=== PATIENT | male | born 1970 | race Caucasian/White ===

== ENCOUNTER → 2016-10-01 | Outpatient (CLI) | payer OTHER ==
[~2016-10-01] MED LIST: MESA1TAB4
[2016-10-01 12:31] LABS: BASO % 0.9 %; BASO ABS # 0.07 K/uL (0-0.2); COMPLETE YES; EOS % 4.1 %; HEMATOCRIT 42.9 % (42-52); IG% 0.2 %; LYMPH % 25.8 %; MEAN CELL VOLUME 80.6 fL (80-100); MEAN CORPUSCULAR HEMOGLOBIN 25.9 pg (25-34); MEAN CORPUSCULAR HGB CONC 32.2 g/dl (32-36); MEAN PLATELET VOLUME 9.6 fL (7.4-10.4); MONO % 5.9 %; NEUT % 63.1 %; PLATELET COUNT 343 K/uL (130-400); RED BLOOD COUNT 5.32 M/uL (4.7-6.1); WHITE BLOOD COUNT 8.14 K/uL (4.8-10.8)
[2016-10-01 12:56] LABS: ALT/SGPT 22 U/L (12-78); AST/SGOT 11 U/L (15-37); BLOOD UREA NITROGEN 12 mg/dl (7-18); BUN/CREATININE RATIO 12.2 (10-20); CALCIUM 8.6 mg/dl (8.5-10.1); CARBON DIOXIDE 28 mmol/L (21-32); CHLORIDE 106 mmol/L (98-107); CHOLESTEROL 166 mg/dl (0-200); CREATININE 0.98 mg/dl (0.60-1.40); GLUCOSE 92 mg/dl (70-99); SODIUM 141 mmol/L (136-145)
[2016-10-01 12:59] LABS: ALKALINE PHOSPHATASE 86 U/L (45-117); CHOLESTEROL/HDL RATIO 3.7; HDL CHOLESTEROL 45 mg/dl; LDL CHOLESTEROL CALCULATED 84 mg/dl; TRIGLYCERIDES 184 mg/dl (0-150); VERY LOW DENSITY LIPOPROT CALC 37 mg/dl
== END | disposition home or self-care (01) ==
LOC: C.LABBFT 07:50
PROVIDERS: ATTEND Internal Medicine
DX: Z00.00 Encounter for general adult medical examination without abnormal findings (principal); K52.9 Noninfective gastroenteritis and colitis, unspecified; I10 Essential (primary) hypertension; J45.909 Unspecified asthma, uncomplicated; E78.5 Hyperlipidemia, unspecified

== ENCOUNTER 2020-07-10 11:33 | Inpatient (IN) ==
[2020-07-10] MEDS ORDERED: SODIUM CHLORIDE 0.9% 1000ML 1,000 ML IV STA (12:09)
--- NOTE | 2020-07-10 12:16 | Emergency Department Note ---
Impression & Plan Large bowel obstruction, Colonic mass, Leukocytosis, Enterocolic fistula ED Provider Note NAME: NILO KING AGE: 49 SEX: M : 1970 ARRIVES VIA: Walk-In INFORMANT: [Patient] ED PROVIDER(S): [Eric Reveles MD] CHIEF COMPLAINT: Abdominal pain HISTORY OF PRESENT ILLNESS: Patient is a 49-year-old male who has had about a week and a half of abdominal pain and difficulty moving his bowels. He states his last bowel movement was sort of black and hard and was about a week ago. He has had intermittent lower abdominal pain that is colicky and crampy in nature. The pain is currently a 2, it had been as bad as a 7. Patient does think eating makes things worse. There has been no shortness of breath or chest pain. No fever or chills. He did vomit once last week, he has had some nausea and decreased appetite ever since. He does have some difficulty starting his urine although, the issue with the urine has been ongoing. Patient does believe he is still passing some gas from below, just no stool. The patient saw his doctors office today, he was referred to the ED for the possibility of a bowel obstruction. Of note, the patient has had a colonoscopy in the past showing diverticuli, the patient himself is concerned for diverticulitis. REVIEW OF SYSTEMS: See HPI for pertinent positives and negatives. A total of ten systems were reviewed and were otherwise negative. PMHx/PSHx: See Below SOCIAL HISTORY: See Below. PHYSICAL EXAM: GENERAL: Patient is in no acute distress. HEENT: No acute trauma, normocephalic atraumatic, mucous membranes moist, no nasal congestion, no scleral icterus. NECK: No stridor, no adenopathy, no meningismus, trachea is midline. LUNGS: Clear to auscultation bilaterally, no wheeze, no rhonchi, breath sounds equal. HEART: Mildly tachycardic, regular rhythm, no murmurs. ABDOMEN: Soft, mildly tender in the bilateral lower abdomen, bowel sounds positive, no hernias, no peritonitis. No distention. EXTREMITIES: No cyanosis or edema, full range of motion of all the joints without pain or difficulty, no signs for acute trauma. NEUROLOGIC: Oriented x 3, no acute motor or sensory deficits, no focal weakness. SKIN: No rash, no jaundice, no diaphoresis. Groin: No obvious hernia by my exam. DIFFERENTIAL DIAGNOSIS: Appendicitis, testicular torsion, infections, diverticulitis, UTI, obstruction, mesenteric ischemia, aortic pathology, inflammatory bowel disease, renal colic, PUD, pancreatitis, biliary pathology, hernia, volvulus, constipation, as well as other pathologies. EMERGENCY DEPARTMENT COURSE/PROCEDURES: ECG: Indication was abdominal pain. The ECG shows a normal sinus rhythm with a rate of 84. There are no PVCs, no ST elevation. The QTc is 418. Continuous Cardiac Monitoring: An order was placed for continuous cardiac monitoring. The monitor shows a rate of 102 with sinus tachycardia. MEDICAL DECISION MAKING: There is a moderate leukocytosis at 14,000, this certainly could be consistent with infection. There is no anemia. There is a slightly elevated platelet count. Renal panel testing shows a mild hyponatremia. A very mild acidosis was suggested. There was no kidney failure. No liver enzyme elevation. No evidence for pancreatitis. ECG showed a sinus rhythm, no acute ischemia. Cardiac enzyme testing x1 is not consistent with acute cardiac injury. Abdominal and pelvis CT shows a colonic obstruction secondary to what was felt to be a colonic mass. There were some swollen lymph nodes. 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 No free air. Patient received IV saline, 1 L. He was given IV Zosyn as empiric antibiotic coverage. I talked to the patient about his findings. I did speak with GI. The patient is likely going to have a colonic stent placed tomorrow. General surgery was also consulted. I did speak with case management, I did call the on-call hospitalist. Given the findings, hospitalization is clearly warranted. The findings on work-up explain his presentation. Past Med/Surg History Medical History Asthma Hyperlipidemia Hypertension Impaired fasting glucose Non-specific colitis Proctosigmoiditis Surgical History H/O arthroscopic knee surgery History of colonoscopy History of tonsillectomy History of tooth extraction Family History Aunt Family history of diabetes mellitus Other Depression Macular degeneration Obesity Ulcerative colitis Denies family history of Breast cancer Colorectal cancer Social History Smoking Status: Never smoker Second Hand Exposure: No; Hx Alcohol Use: Yes Alcohol type: hard liquor Hx Substance Use: No Preferred Language: Slovak Communication Ability: Effective Combine Inspector Required: No Beliefs That Will Affect Care: None Current Living Situation: Alone current occupational status: employed Feels Safe at Home: Yes Assistive Devices: Glasses Allergies Allergies Allergy/AdvReac Type Severity Reaction Status Date / Time No Known Allergies Allergy Verified 07/10/20 13:10 Home Meds Previous Rx's Medication Instructions Recorded albuterol sulfate 90 mcg/actuation 2 puffs INH Q4H PRN #8.5 gm 10/26/19 aerosol inhaler lisinopril 10 mg tablet 10 mg PO DAILY #90 tab 01/19/20 simvastatin 20 mg tablet 20 mg PO HS #90 tab 04/25/20 Results & Data (ED) Vital Signs Vital Signs - 24 hr 07/10/20 11:35 Temperature 36.7 C Temperature Source Temporal Artery Scan Pulse Rate 102 H Respiratory Rate 20 Respiratory Effort / Characteristics Non-Labored Spontaneous Respiratory Depth Normal Respiratory Pattern Regular Blood Pressure 109/70 Blood Pressure Mean 83 Blood Pressure Position Sitting Pulse Oximetry 99 Oxygen Delivery Method Room Air Sepsis Recent Fever Within 48 Hours No Sepsis New/Unexplained Change in Mental Status N/A Sepsis Action Taken by Nursing No Action Required Home Medications Current Medication List: was personally reviewed by me Laboratory Data Attestation: I reviewed the patient's lab results. Result diagrams: 07/10/20 12:14 07/10/20 12:14 Lab Results 07/10/20 07/10/20 Range/Units 12:14 12:14 WBC 14.65 H (4.8-10.8) K/uL RBC 5.70 (4.7-6.1) M/uL Hgb 16.9 (14.0-18.0) g/dL Hct 46.3 (42-52) % MCV 81.2 (80-100) fL MCH 29.6 (25-34) pg MCHC 36.5 H (32-36) g/dL RDW Std Deviation 36.8 (36.4-46.3) fL RDW Coeff of Odell 12.5 (11.5-14.5) % Plt Count 415 H (130-400) K/uL MPV 8.9 (7.4-10.4) fL Immature Gran % (Auto) 3.5 % Neut % (Auto) 47.6 % Lymph % (Auto) 38.9 % [place] % (Auto) 7.9 % Eos % (Auto) 1.6 % Baso % (Auto) 0.5 % Neut # (Auto) 6.97 H (1.4-6.5) K/uL Lymph # (Auto) 5.70 H (1.2-3.4) K/uL [place] # (Auto) 1.16 H (0.11-0.59) K/uL Eos # (Auto) 0.24 (0-0.5) K/uL Baso # (Auto) 0.07 (0-0.2) K/uL Immature Gran # (Auto) 0.51 H (0.00-0.02) K/uL Smudge Cells Present Blood Smear Review Sodium 132 L (136-145) mmol/L Potassium 3.6 (3.5-5.1) mmol/L Chloride 100 (98-107) mmol/L Carbon Dioxide 17 L (21-32) mmol/L Anion Gap 15.0 H (3-11) BUN 16 (7-18) mg/dl Creatinine 0.94 (0.6-1.4) mg/dl Est Cr Clr Drug Dosing 123.8 ml/min Est GFR ( Amer) 110.7 Est GFR (Non-Af Amer) 95.5 BUN/Creatinine Ratio 17.5 (10-20) Glucose 105 H (70-99) mg/dl Calcium 8.4 L (8.5-10.1) mg/dl Total Bilirubin 0.6 (0.2-1) mg/dl AST 25 (15-37) U/L ALT 36 (12-78) U/L Alkaline Phosphatase 74 (45-117) U/L Troponin I < 0.015 (0-0.045) ng/ml Total Protein 7.0 (6.4-8.2) gm/dl Albumin 3.3 L (3.4-5.0) gm/dl Globulin 3.7 (2.5-4.0) gm/dl Albumin/Globulin Ratio 0.9 (0.9-2) Lipase 153 (73-393) U/L Administered Medications Discontinued Medications Sodium Chloride (Nss 1000ml) 1,000 mls @ 999 mls/hr IV .Q1H1M STA Stop: 07/10/20 13:09 Last Infusion: 07/10/20 13:15 Dose: 0 mls/hr Documented by: [id number] Admin: 07/10/20 12:14 Dose: 999 mls/hr Documented by: [id number] Ioversol (Ioversol 100ml) 94 ml IV ONCE ONE Stop: 07/10/20 13:13 Last Admin: 07/10/20 13:12 Dose: 94 ml Documented by: [id number] Imaging Data Radiologist's Impression: CT SCAN OF THE ABDOMEN AND PELVIS WITH IV CONTRAST CLINICAL HISTORY: Generalized abdominal pain. Nausea. COMPARISON STUDY: KUB dated 11/04/2011. TECHNIQUE: Following the IV administration of 94 cc of Optiray 320, CT scan of the abdomen and pelvis is performed from the lung bases to the proximal femora. Images are reviewed in the axial, sagittal, and coronal planes. IV contrast was administered without complication. A dose lowering technique was utilized adhering to the principles of ALARA. CT DOSE: 1120.30 mGycm FINDINGS: Lung bases: The heart is normal in size and without pericardial effusion. There are scattered calcified granulomas. The lung bases are otherwise clear. A small hiatal hernia is noted. Liver: The contrast-enhanced liver is normal in size, contour, and attenuation. There is no intrahepatic biliary ductal dilatation. The hepatic veins and portal veins are patent. Gallbladder: Unremarkable. Spleen: Normal in size and attenuation. Pancreas: Unremarkable. Adrenal glands: Unremarkable. Kidneys: The contrast enhanced kidneys are normal in size and without hydrone phrosis. The kidneys enhance symmetrically. A subcentimeter cortical hypodensity in the left kidney likely represents a cyst but is too small for definitive characterization. A retroaortic left renal vein is incidentally noted. Abdominal vasculature: The abdominal aorta is normal in course and caliber. Bowel: The colon is mildly distended and filled with stool. There is rapid transition point in the proximal sigmoid colon the pelvis seen on axial image #355. There is apparent shouldering at this site, and this is concerning for a colonic obstruction secondary to a mass lesion. There is mild to moderate sigmoid diverticulosis without CT evidence of acute diverticulitis. Question an enterocolic fistula in this region on axial image #345. Mild infiltration is seen around the left colon. The small bowel loops are normal in caliber. The appendix is well-visualized and normal. Peritoneum: There is no intraperitoneal free air or abdominal ascites. Lymphadenopathy: There are enlarged pericolonic lymph nodes in the left lower quadrant. The largest is seen on image #314 and measures 11 mm. Pelvic viscera: The bladder, prostate, and seminal vesicles are normal as imaged. Skeletal structures: No lytic or blastic lesions are seen. IMPRESSION: 1. The colon is distended and filled with stool to the level of the proximal sigmoid colon and the appearance is consistent with a colonic obstruction. Findings suggest an obstructing mass lesion and neoplasm is to be excluded. Follow-up with colonoscopy is recommended. 2. There is mild wall thickening and pericolonic inflammation seen involving the descending colon. This is consistent with a nonspecific colitis, possibly stercoral. 3. The small bowel loops are normal in caliber. 4. Findings suggest an enterocolic fistula in the pelvis at the level of obstruction. 5. There is mild/moderate diverticulosis of the sigmoid without CT evidence of acute diverticulitis. 6. Mildly enlarged pericolonic lymph nodes are seen in the left lower quadrant. 7. Additional findings as above. Discharge Plan Visit Data Chief Complaint: GI Assessment Stated Complaint: CONSTIPATION ED Provider: Eric Reveles Discharge Problem: Large bowel obstruction, Colonic mass, Leukocytosis, Enterocolic fistula Patient Disposition: Admitted As Inpatient Condition: Fair Forms Stand Alone Forms: [employer] Prescriptions Prescriptions: No Action lisinopril 10 mg tablet 10 mg PO DAILY Qty: 90 RF: 3 albuterol sulfate [Ventolin HFA] 90 mcg/actuation HFA aerosol inhaler 2 puffs INH Q4H PRN (Reason: shortness of breath or wheezing) Qty: 8.5 RF: 3 simvastatin 20 mg tablet 20 mg PO HS Qty: 90 RF: 3 Referrals Referrals: Jasmin Brooks MD [Primary Care Provider] - Discharge Problem: Leukocytosis Qualifiers: Leukocytosis type: unspecified Qualified Code(s): D72.829 - Elevated white blood cell count, unspecified
[2020-07-10 12:23] LABS: Hematocrit (blood only) 46.3 % (42-52); Hemoglobin 16.9 g/dL (14.0-18.0); Mean Corpuscular Hemoglobin 29.6 pg (25-34); Mean Corpuscular Hgb Conc 36.5 g/dL (32-36); Mean Corpuscular Volume 81.2 fL (80-100); Mean Platelet Volume 8.9 fL (7.4-10.4); Platelet Count 415 K/uL (130-400); RDW Coefficient of Variation 12.5 % (11.5-14.5); RDW Standard Deviation 36.8 fL (36.4-46.3); White Blood Count 14.65 K/uL (4.8-10.8)
[2020-07-10 12:39] LABS: Alanine Aminotransferase 36 U/L (12-78); Albumin Level 3.3 gm/dl (3.4-5.0); Aspartate Aminotransferase 25 U/L (15-37); BUN Creatinine Ratio 17.5 (10-20); Blood Urea Nitrogen 16 mg/dl (7-18); Calcium 8.4 mg/dl (8.5-10.1); Carbon Dioxide 17 mmol/L (21-32); Chloride 100 mmol/L (98-107); Creatinine Clr Calc Pharmacy 123.8 ml/min; Est GFR (African American) 110.7; Est GFR (Non-African American) 95.5; Glucose 105 mg/dl (70-99); Lipase 153 U/L (73-393); Potassium 3.6 mmol/L (3.5-5.1); Sodium 132 mmol/L (136-145)
[2020-07-10 12:44] LABS: Albumin Globulin Ratio 0.9 (0.9-2); Alkaline Phosphatase 74 U/L (45-117); Bilirubin,Total 0.6 mg/dl (0.2-1); Globulin 3.7 gm/dl (2.5-4.0); Troponin I < 0.015 ng/ml (0-0.045)
[2020-07-10] MEDS ORDERED: OPTIRAY 320 100ml IV ONE (13:12)
[2020-07-10 13:18] LABS: Basophils # (auto) 0.07 K/uL (0-0.2); Basophils % (auto) 0.5 %; Eosinophils # (auto) 0.24 K/uL (0-0.5); Eosinophils % (auto) 1.6 %; Immature Granulocytes # (auto) 0.51 K/uL (0.00-0.02); Immature Granulocytes % (auto) 3.5 %; Lymphocytes % (auto) 38.9 %; Monocytes # (auto) 1.16 K/uL (0.11-0.59); Monocytes % (auto) 7.9 %; Neutrophils # (auto) 6.97 K/uL (1.4-6.5); Neutrophils % (auto) 47.6 %; Smudge Cells Present
--- NOTE | 2020-07-10 13:35 | CT Scan Report ---
CT SCAN OF THE ABDOMEN AND PELVIS WITH IV CONTRAST CLINICAL HISTORY: Generalized abdominal pain. Nausea. COMPARISON STUDY: KUB dated 11/04/2011. TECHNIQUE: Following the IV administration of 94 cc of Optiray 320, CT scan of the abdomen and pelvi s is performed from the lung bases to the proximal femora. Images are reviewed in the axial, sagittal , and coronal planes. IV contrast was administered without complication. A dose lowering technique wa s utilized adhering to the principles of ALARA. CT DOSE: 1120.30 mGycm FINDINGS: Lung bases: The heart is normal in size and without pericardial effusion. There are scattered calcifi ed granulomas. The lung bases are otherwise clear. A small hiatal hernia is noted. Liver: The contrast-enhanced liver is normal in size, contour, and attenuation. There is no intrahepa tic biliary ductal dilatation. The hepatic veins and portal veins are patent. Gallbladder: Unremarkable. Spleen: Normal in size and attenuation. Pancreas: Unremarkable. Adrenal glands: Unremarkable. Kidneys: The contrast enhanced kidneys are normal in size and without hydronephrosis. The kidneys enh ance symmetrically. A subcentimeter cortical hypodensity in the left kidney likely represents a cyst but is too small for definitive characterization. A retroaortic left renal vein is incidentally noted . Abdominal vasculature: The abdominal aorta is normal in course and caliber. Bowel: The colon is mildly distended and filled with stool. There is rapid transition point in the pr oximal sigmoid colon the pelvis seen on axial image #355. There is apparent shouldering at this site, and this is concerning for a colonic obstruction secondary to a mass lesion. There is mild to modera te sigmoid diverticulosis without CT evidence of acute diverticulitis. Question an enterocolic fistul a in this region on axial image #345. Mild infiltration is seen around the left colon. The small bruce l loops are normal in caliber. The appendix is well-visualized and normal. Peritoneum: There is no intraperitoneal free air or abdominal ascites. Lymphadenopathy: There are enlarged pericolonic lymph nodes in the left lower quadrant. The largest i s seen on image #314 and measures 11 mm. Pelvic viscera: The bladder, prostate, and seminal vesicles are normal as imaged. Skeletal structures: No lytic or blastic lesions are seen. IMPRESSION: 1. The colon is distended and filled with stool to the level of the proximal sigmoid colon and the ap pearance is consistent with a colonic obstruction. Findings suggest an obstructing mass lesion and ne oplasm is to be excluded. Follow-up with colonoscopy is recommended. 2. There is mild wall thickening and pericolonic inflammation seen involving the descending colon. Th is is consistent with a nonspecific colitis, possibly stercoral. 3. The small bowel loops are normal in caliber. 4. Findings suggest an enterocolic fistula in the pelvis at the level of obstruction. 5. There is mild/moderate diverticulosis of the sigmoid without CT evidence of acute diverticulitis. 6. Mildly enlarged pericolonic lymph nodes are seen in the left lower quadrant. 7. Additional findings as above. ACT 112: Positive. There are findings on this exam that require communication between the performing entity and the patient following Patient Test Result Information Act ([place] Act 112) guidelines. Electronically signed by: Eric Petersen M.D. 07/10/2020 1:33 PM
[2020-07-10] MEDS ORDERED: PIPERACILL/TAZOBAC CONSULT ACTIVE PRN ×3 (13:50→22:25)
[2020-07-10] MEDS ORDERED: PIPERACILLIN/TAZOBACTAM 4.5 GM/120 ML BAG IV ONE ×3 (13:50→20:30)
--- NOTE | 2020-07-10 14:26 | Electrocardiogram Report ---
Test Reason : Blood Pressure : / mmHG Vent. Rate : 084 BPM Atrial Rate : 084 BPM P-R Int : 168 ms QRS Dur : 082 ms QT Int : 354 ms P-R-T Axes : 039 016 006 degrees QTc Int : 418 ms Normal sinus rhythm Normal ECG No previous ECGs available Confirmed by Jeyson Turcios ([id number]) on 07/10/2020 2:26:12 PM Referred By: SELF Confirmed By:Jeyson Turcios
--- NOTE | 2020-07-10 14:38 | History & Physical Report ---
Date of Service July 10, 2020 History of Present Illness Primary Care Provider: Jasmin Brooks MD Richard Roberts is a 49-year-old male who presents to the ER with He has a notable history of active chronic colitis of the sigmoid colon. Last colonoscopy in November 2019. Intermittent issues with left lower quadrant pain and rectal bleeding. Colonoscopy in November showed localized moderate inflammation found in sigmoid colon secondary to colitis. Pathology of sigmoid biopsy showed focal active chronic colitis. In the ER he underwent CT abdomen pelvis with IV contrast showing distended colon, filled with stool level of proximal sigmoid colon with appearance consistent with a colonic obstruction and possible obstructing mass in this area. Also concerning findings suggestive of enterocolic fistula in the pelvis at the level of the obstruction. No evidence of acute diverticulitis. Allergies Allergy/AdvReac Type Severity Reaction Status Date / Time No Known Allergies Allergy Verified 07/10/20 13:10 Home Medications Medication Instructions Recorded Confirmed Type albuterol sulfate 90 mcg/actuation 2 puffs INH Q4H PRN #8.5 gm 10/26/19 07/10/20 Rx aerosol inhaler lisinopril 10 mg tablet 10 mg PO DAILY #90 tab 01/19/20 07/10/20 Rx simvastatin 20 mg tablet 20 mg PO HS #90 tab 04/25/20 07/10/20 Rx Past Med/Surg History Medical History Asthma Hyperlipidemia Hypertension Impaired fasting glucose Non-specific colitis Proctosigmoiditis Surgical History H/O arthroscopic knee surgery History of colonoscopy History of tonsillectomy History of tooth extraction Family History Aunt Family history of diabetes mellitus Other Depression Macular degeneration Obesity Ulcerative colitis Denies family history of Breast cancer Colorectal cancer Social History Smoking Status: Never smoker Second Hand Exposure: No; Hx Alcohol Use: Yes Alcohol type: hard liquor Hx Substance Use: No Preferred Language: Latvian Communication Ability: Effective 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
[2020-07-10] MEDS ORDERED: SODIUM CHLORIDE 0.9% 1000ML 500 ML IV ONE (14:56)
[2020-07-10 17:32] LABS: Appearance Urine Clear (Clear); Bilirubin Urine Negative (Negative); Blood Urine Negative (Negative); Color Urine Yellow; Glucose Urine UA Negative (Negative); Ketones Urine 3+ (Negative); Leukocyte Esterase Urine Negative (Negative); Nitrite Urine Negative (Negative); Protein Urine Negative (Negative); Specific Gravity Urine > 1.045 (1.000-1.030); Urobilinogen Urine Negative (Negative)
[2020-07-10] MEDS ORDERED: ACETAMINOPHEN 1,000 MG/100 ML VIAL IV STA (19:34)
--- NOTE | 2020-07-10 21:01 | History & Physical Report ---
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/nonspecific likely stercoral colitis- NPO NSS + KCl 20 mEq 100 mils per hour Zosyn 4.5 g IV every 8 hours Zofran 4 mg IV every 6 hours as needed Famotidine 20 mg IV every 12 hours Acetaminophen 1 g IV every 8 hours as needed mild pain or fever Morphine sulfate 2 mg IV every 4 hours as needed severe pain Consult gastroenterology Present on Admission?: Yes (2) Colonic mass: See above Present on Admission?: Yes (3) Enterocolic fistula: See above Present on Admission?: Yes (4) Non-specific colitis: See above Present on Admission?: Yes (5) Asthma: DuoNebs every 2 hours as needed Present on Admission?: Yes (6) Hyperlipidemia: Hold simvastatin Present on Admission?: Yes (7) Hypertension: Hold lisinopril Present on Admission?: Yes History of Present Illness Chief Complaint: The patient presents to the emergency department with complaint of 1-1/2 weeks of constipation, last BM about 1 week ago that was black and [address]. Primary Care Provider: Jasmin Brooks MD The patient is a 49-year-old male with a past medical history including ta chycardia, constipation, impaired fasting glucose, asthma, hyperlipidemia and hypertension. He presents to the emergency department with difficulty moving his bowels, with last bowel movement being 1 week ago. Work-up in the emergency department included a CT scan of abdomen and pelvis which revealed a colonic mass causing large bowel obstruction, and presence of and enterocolic fistula. Consideration was early on to transfer the patient to [facility], however, the [facility] hospitalist service is being consulted to admit the patient to this hospital, to undergo possible stenting procedure by GI tomorrow. Allergies Allergy/AdvReac Type Severity Reaction Status Date / Time No Known Allergies Allergy Verified 07/10/20 13:10 Home Medications Medication Instructions Recorded Confirmed Type albuterol sulfate 90 mcg/actuation 2 puffs INH Q4H PRN #8.5 gm 10/26/19 07/10/20 Rx aerosol inhaler lisinopril 10 mg tablet 10 mg PO DAILY #90 tab 01/19/20 07/10/20 Rx simvastatin 20 mg tablet 20 mg PO HS #90 tab 04/25/20 07/10/20 Rx Past Med/Surg History Medical History Asthma Hyperlipidemia Hypertension Impaired fasting glucose Non-specific colitis Proctosigmoiditis Surgical History H/O arthroscopic knee surgery History of colonoscopy History of tonsillectomy History of tooth extraction Family History Aunt Family history of diabetes mellitus Other Depression Macular degeneration Obesity Ulcerative colitis Denies family history of Breast cancer Colorectal cancer Social History Smoking Status: Never smoker Second Hand Exposure: No; Hx Alcohol Use: Yes Alcohol type: hard liquor Hx Substance Use: No Preferred Language: Tamazight Communication Ability: Effective 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 Beliefs That Will Affect Care: None Current Living Situation: Alone current occupational status: employed Other Information That Helps Us Care for You: No Feels Safe at Home: Yes Safety Concerns: Feels Safe At This Time Assistive Devices: None Assistive Devices Comment: reading glasses Review of Systems Review of Systems: The patient denies chest pain, palpitations, shortness of breath, dyspnea on exertion, cough, lower extremity swelling, sore throat, fevers, chills, sweats, blood in urine or stool, dysuria, urinary frequency or urgency, lightheadedness, dizziness, headache, memory loss, loss of consciousness, rash, abnormal bruising or bleeding, imbalance, focal or generalized weakness, numbness or tingling in arms or legs, generalized arthralgias or myalgias, neck pain, or night sweats. The review of systems is otherwise negative other than for that already noted above, and at least 10 systems have been reviewed. Physical Exam Physical Exam: The patient is awake, alert and oriented 3, normocephalic and atraumatic, lying in bed and in no acute distress. HEENT--PERRL, EOMI, mucous membranes and oropharynx dry. Neck--supple. No JVD. No bruits. Thyroid normal, trachea midline, no adenopathy. Heart--normal S1 and S2. No murmurs, rubs or gallops. Lungs--clear bilaterally, no respiratory distress, no accessory muscle use. Abdomen--decreased bowel sounds. Firm. Generalized tenderness. Distended. Extremities--no cyanosis or clubbing. No edema. Dermatologic--normal skin turgor, normal color, no abnormal lymph nodes, no ra sh. Neurologic--cranial nerves II through XII grossly intact. Rheumatologic--limited exam Psychiatric--normal affect. Results & Data Results & Data ([facility]) Vital Signs (Past 12 Hours) Vital Signs Temp Pulse Pulse Resp BP BP Pulse Ox 07/10/20 20:36 86 18 99 07/10/20 19:48 88 16 103/68 98 07/10/20 18:00 109/74 07/10/20 16:00 71 18 109/74 99 07/10/20 14:00 80 20 124/75 98 07/10/20 11:35 98.1 F 102 H 20 109/70 99 Laboratory Results Laboratory Results WBC 14.65 K/uL (4.8-10.8) H 07/10/20 12:14 RBC 5.70 M/uL (4.7-6.1) 07/10/20 12:14 Hgb 16.9 g/dL (14.0-18.0) 07/10/20 12:14 Hct 46.3 % (42-52) 07/10/20 12:14 MCV 81.2 fL (80-100) 07/10/20 12:14 MCH 29.6 pg (25-34) 07/10/20 12:14 MCHC 36.5 g/dL (32-36) H 07/10/20 12:14 RDW Std Deviation 36.8 fL (36.4-46.3) 07/10/20 12:14 RDW Coeff of [place]ell 12.5 % (11.5-14.5) 07/10/20 12:14 Plt Count 415 K/uL (130-400) H 07/10/20 12:14 MPV 8.9 fL (7.4-10.4) 07/10/20 12:14 Immature Gran % (Auto) 3.5 % 07/10/20 12:14 Neut % (Auto) 47.6 % 07/10/20 12:14 Lymph % (Auto) 38.9 % 07/10/20 12:14 [place] % (Auto) 7.9 % 07/10/20 12:14 Eos % (Auto) 1.6 % 07/10/20 12:14 Baso % (Auto) 0.5 % 07/10/20 12:14 Neut # (Auto) 6.97 K/uL (1.4-6.5) H 07/10/20 12:14 Lymph # (Auto) 5.70 K/uL (1.2-3.4) H 07/10/20 12:14 [place] # (Auto) 1.16 K/uL (0.11-0.59) H 07/10/20 12:14 Eos # (Auto) 0.24 K/uL (0-0.5) 07/10/20 12:14 Baso # (Auto) 0.07 K/uL (0-0.2) 07/10/20 12:14 Immature Gran # (Auto) 0.51 K/uL (0.00-0.02) H 07/10/20 12:14 Smudge Cells Present 07/10/20 12:14 Blood Smear Review 07/10/20 12:14 Sodium 132 mmol/L (136-145) L 07/10/20 12:14 Potassium 3.6 mmol/L (3.5-5.1) 07/10/20 12:14 Chloride 100 mmol/L (98-107) 07/10/20 12:14 Carbon Dioxide 17 mmol/L (21-32) L 07/10/20 12:14 Anion Gap 15.0 (3-11) H 07/10/20 12:14 BUN 16 mg/dl (7-18) 07/10/20 12:14 Creatinine 0.94 mg/dl (0.6-1.4) 07/10/20 12:14 Est Cr Clr Drug Dosing 123.8 ml/min 07/10/20 12:14 Est GFR ( Amer) 110.7 07/10/20 12:14 Est GFR (Non-Af Amer) 95.5 07/10/20 12:14 BUN/Creatinine Ratio 17.5 (10-20) 07/10/20 12:14 Glucose 105 mg/dl (70-99) H 07/10/20 12:14 Calcium 8.4 mg/dl (8.5-10.1) L 07/10/20 12:14 Total Bilirubin 0.6 mg/dl (0.2-1) 07/10/20 12:14 AST 25 U/L (15-37) 07/10/20 12:14 ALT 36 U/L (12-78) 07/10/20 12:14 Alkaline Phosphatase 74 U/L (45-117) 07/10/20 12:14 Troponin I < 0.015 ng/ml (0-0.045) 07/10/20 12:14 Total Protein 7.0 gm/dl (6.4-8.2) 07/10/20 12:14 Albumin 3.3 gm/dl (3.4-5.0) L 07/10/20 12:14 Globulin 3.7 gm/dl (2.5-4.0) 07/10/20 12:14 Albumin/Globulin Ratio 0.9 (0.9-2) 07/10/20 12:14 Lipase 153 U/L (73-393) 07/10/20 12:14 Urine Color Yellow 07/10/20 16:44 Urine Appearance Clear (Clear) 07/10/20 16:44 Urine pH 5.0 (4.5-7.5) 07/10/20 16:44 Ur Specific [place] > 1.045 (1.000-1.030) H 07/10/20 16:44 Urine Protein Negative (Negative) 07/10/20 16:44 Urine Glucose (UA) Negative (Negative) 07/10/20 16:44 Urine Ketones 3+ (Negative) H 07/10/20 16:44 Urine Blood Negative (Negative) 07/10/20 16:44 Urine Nitrite Negative (Negative) 07/10/20 16:44 Urine Bilirubin Negative (Negative) 07/10/20 16:44 Urine Urobilinogen Negative (Negative) 07/10/20 16:44 Ur Leukocyte Esterase Negative (Negative) 07/10/20 16:44 COVID-19 Eval Order Cov[facility] 07/10/20 19:44 SARS-CoV-2, RNA, NAAT NEGATIVE (NEGATIVE) 07/10/20 19:44 SARS-CoV-2 Ag (Rapid) Negative (Negative) 07/10/20 15:30 Diagnostic Findings [facility], [phone] CT Scan Report Patient: NILO KING Date: 07/10/20#: [id number]: [address] ID:[id number]: Date: 1970City Zip: [place] [id number]: 49Location: EDSex: MRoom/Bed:Att Phy:Diagnosis: CONSTIPATIONPri Phy: Jasmin Brooks, MDService Date: 07/10/20Fa Phy:Interpreting Phy: Eric Petersen MDAdmit Phy: Ordering Phy: Eric Reveles M.D. cc: ~ CT SCAN OF THE ABDOMEN AND PELVIS WITH IV CONTRAST CLINICAL HISTORY: Generalized abdominal pain. Nausea. COMPARISON STUDY: KUB dated 11/04/2011. TECHNIQUE: Following the IV administration of 94 cc of Optiray 320, CT scan of the abdomen and pelvis is performed from the lung bases to the proximal femora. Images are reviewed in the axial, sagittal, and coronal planes. IV contrast was administered without complication. A dose lowering technique was utilized adhering to the principles of ALARA. CT DOSE: 1120.30 mGycm FINDINGS: Lung bases: The heart is normal in size and without pericardial effusion. There are scattered calcified granulomas. The lung bases are otherwise clear. A small hiatal hernia is noted. Liver: The contrast-enhanced liver is normal in size, contour, and attenuation. There is no intrahepatic biliary ductal dilatation. The hepatic veins and portal veins are patent. Gallbladder: Unremarkable. Spleen: Normal in size and attenuation. Pancreas: Unremarkable. Adrenal glands: Unremarkable. Kidneys: The contrast enhanced kidneys are normal in size and without hydronephrosis. The kidneys enhance symmetrically. A subcentimeter cortical hypodensity in the left kidney likely represents a cyst but is too small for definitive characterization. A retroaortic left renal vein is incidentally noted. Abdominal vasculature: The abdominal aorta is normal in course and caliber. Bowel: The colon is mildly distended and filled with stool. There is rapid transition point in the proximal sigmoid colon the pelvis seen on axial image #355. There is apparent shouldering at this site, and this is concerning for a colonic obstruction secondary to a mass lesion. There is mild to moderate sigmoid diverticulosis without CT evidence of acute diverticulitis. Question an enterocolic fistula in this region on axial image #345. Mild infiltration is seen around the left colon. The small bowel loops are normal in caliber. The appendix is well-visualized and normal. Peritoneum: There is no intraperitoneal free air or abdominal ascites. Lymphadenopathy: There are enlarged pericolonic lymph nodes in the left lower quadrant. The largest is seen on image #314 and measures 11 mm. Pelvic viscera: The bladder, prostate, and seminal vesicles are normal as imaged. Skeletal structures: No lytic or blastic lesions are seen. IMPRESSION: 1. The colon is distended and filled with stool to the level of the proximal sigmoid colon and the appearance is consistent with a colonic obstruction. Findings suggest an obstructing mass lesion and neoplasm is to be excluded. Follow-up with colonoscopy is recommended. 2. There is mild wall thickening and pericolonic inflammation seen involving the descending colon. This is consistent with a nonspecific colitis, possibly stercoral. 3. The small bowel loops are normal in caliber. 4. Findings suggest an enterocolic fistula in the pelvis at the level of obstruction. 5. There is mild/moderate diverticulosis of the sigmoid without CT evidence of acute diverticulitis. 6. Mildly enlarged pericolonic lymph nodes are seen in the left lower quadrant. 7. Additional findings as above. ACT 112: Positive. There are findings on this exam that require communication between the performing entity and the patient following Patient Test Result Information Act ([place] Act 112) guidelines. Electronically signed by: Eric Petersen M.D. 07/10/2020 1:33 PM Dictated: 07/10/20 1323Transcribed: 07/10/20 1323 Code Status & VTE Plan Code Status Full code VTE Prophylaxis Plan VTE Prophylaxis will be ordered: Yes PG Care Time/CCT Total # of Minutes Spent Total Time Spent with Patient: Total time spent is greater than 50% in coordination of care (as documented) at patient's floor/unit and/or counseling patient: Coding Level of Care Code 88818 Initial Inpt Care Lvl 2 Diagnoses Large bowel obstruction K56.609 Colonic mass K63.89 Enterocolic fistula K63.2 Non-specific colitis K52.9 Asthma J45.909 Hyperlipidemia E78.5 Hypertension I10
[2020-07-10] MEDS ORDERED: ONDANSETRON INJ 2 MG/ML 2 ML VIAL IV PRN (22:25)
[2020-07-10] MEDS ORDERED: MoRPHine SULFATE 2 MG/ML CARP IV PRN (22:25)
[2020-07-10] MEDS ORDERED: NSS + 20MEQ KCL 20 MEQ/1,000 ML BAG IV SCH (22:25)
[2020-07-10] MEDS ORDERED: ACETAMINOPHEN 1000 MG/100 ML IV IV PRN (22:25)
[2020-07-11] MEDS ORDERED: ALBUT/IPRATROP 3MG/0.5MG NEB 3 ML VIAL NEB PRN (00:46)
[2020-07-11] MEDS: FAMOTIDINE 20 MG in SYRINGE 3 ML IV SCH ×2 (01:15→08:58)
[2020-07-11] MEDS ORDERED: PIPERACILLIN/TAZOBACTAM 4.5 GM in DEXTROSE 5% 100 ML IV SCH (04:00)
[2020-07-11 07:28] LABS: Basophils # (auto) 0.04 K/uL (0-0.2); Basophils % (auto) 0.5 %; Eosinophils # (auto) 0.21 K/uL (0-0.5); Eosinophils % (auto) 2.4 %; Hematocrit (blood only) 40.8 % (42-52); Hemoglobin 14.6 g/dL (14.0-18.0); Immature Granulocytes # (auto) 0.28 K/uL (0.00-0.02); Immature Granulocytes % (auto) 3.2 %; Lymphocytes # (auto) 3.47 K/uL (1.2-3.4); Lymphocytes % (auto) 39.6 %; Mean Corpuscular Hemoglobin 29.7 pg (25-34); Mean Corpuscular Hgb Conc 35.8 g/dL (32-36); Mean Corpuscular Volume 82.9 fL (80-100); Mean Platelet Volume 9.1 fL (7.4-10.4); Monocytes # (auto) 0.97 K/uL (0.11-0.59); Monocytes % (auto) 11.1 %; Neutrophils # (auto) 3.79 K/uL (1.4-6.5); Neutrophils % (auto) 43.2 %; Platelet Count 316 K/uL (130-400); RDW Coefficient of Variation 12.8 % (11.5-14.5); RDW Standard Deviation 38.5 fL (36.4-46.3); Red Blood Count 4.92 M/uL (4.7-6.1); White Blood Count 8.76 K/uL (4.8-10.8)
[2020-07-11 08:01] LABS: Albumin Level 2.7 gm/dl (3.4-5.0); BUN Creatinine Ratio 15.6 (10-20); Calcium 7.4 mg/dl (8.5-10.1); Est GFR (African American) 120.6; Potassium 3.7 mmol/L (3.5-5.1)
[2020-07-11 08:06] LABS: Albumin Globulin Ratio 0.9 (0.9-2); Bilirubin,Total 0.5 mg/dl (0.2-1); Globulin 2.9 gm/dl (2.5-4.0); Total Protein 5.6 gm/dl (6.4-8.2)
--- NOTE | 2020-07-11 09:17 | Discharge Summary ---
Date of Service July 11, 2020 Admission HPI Per Admitting Provider The patient is a 49-year-old male with a past medical history including tachycardia, constipation, impaired fasting glucose, asthma, hyperlipidemia and hypertension. He presents to the emergency department with difficulty moving his bowels, with last bowel movement being 1 week ago. Work-up in the emergency department included a CT scan of abdomen and pelvis which revealed a colonic mass causing large bowel obstruction, and presence of and enterocolic fistula. Consideration was early on to transfer the patient to , [facility] this [facility], to undergo possible stenting procedure by GI tomorrow. Principal Diagnosis large bowel obstruction Discharge Exam The patient is awake, alert and oriented 3, normocephalic and atraumatic, lying in bed and in no acute distress. HEENT--PERRL, EOMI, mucous membranes and oropharynx dry. Neck--supple. No JVD. No bruits. Thyroid normal, trachea midline, no adenopathy. Heart--normal S1 and S2. No murmurs, rubs or gallops. Lungs--clear bilaterally, no respiratory distress, no accessory muscle use. Abdomen--decreased bowel sounds. Firm. distended/ Extremities--no cyanosis or clubbing. No edema. Dermatologic--normal skin turgor, normal color, no abnormal lymph nodes, no rash. Neurologic--cranial nerves II through XII grossly intact. Rheumatologic--limited exam Psychiatric--normal affect. Discharge Data Allergies Allergy/AdvReac Type Severity Reaction Status Date / Time No Known Allergies Allergy Verified 07/10/20 13:10 Consultations 07/10/20 19:31 ED Decision to Admit Stat 07/10/20 22:25 Consult Gastroenterology Routine Ordered Studies 07/10/20 12:09 CT abd pelvis IV con only Stat Hospital Course (1) Large bowel obstruction: On admission: Large bowel obstruction secondary to colonic mass/enterocolic fistula/nonspecific likely stercoral colitis- NPO NSS + KCl 20 mEq 100 mils per hour Zosyn 4.5 g IV every 8 hours Zofran 4 mg IV every 6 hours as needed Famotidine 20 mg IV every 12 hours Acetaminophen 1 g IV every 8 hours as needed mild pain or fever Morphine sulfate 2 mg IV every 4 hours as needed severe pain Consult gastroenterology On discharge: Patient has been accepted to and will be transported there. Holding PO meds. Received zosyn while here. (2) Colonic mass: See above (3) Enterocolic fistula: See above (4) Non-specific colitis: See above (5) Asthma: DuoNebs every 2 hours as needed (6) Hyperlipidemia: Hold simvastatin (7) Hypertension: Hold lisinopril Total Time Total Time Spent Total Time Spent (In Minutes): 35 Discharge Plan Discharge Items Patient Disposition: Transfer Acute Care Hospital Reason For Visit: COLON MASS CAUSING OBSTRUCTION Discharge Diagnosis: COLONIC MASS CAUSING OBSTRUCTION Condition on Discharge: Fair Activity: Resume your previous activity Non-emergency contact: Primary Care Provider Call non-emergency contact if: you have any medication questions Follow-up/Referrals: Jasmin Brooks MD [Primary Care Provider] - Diet: Nothing by Mouth and Other - See Diet Comment Addtl Attending Provider Instructions: WILL BE TRANSFERRED TO Pending Studies at Discharge: No Stand-Alone Forms: My [facility] Skilled Items Patient informed of condition?: No DNR: No Discharge Level of Care: Other Communicable Disease: No Discharge Prognosis: Stable Lines: None Urinary Catheter: No Medications and DC Order Prescriptions: New acetaminophen [Ofirmev] 1,000 mg/100 mL (10 mg/mL) Solution 1,000 mg IV Q8H PRNQty: 0 RF: 0 Continued lisinopril 10 mg tablet 10 mg PO DAILY Qty: 90 RF: 3 albuterol sulfate [Ventolin HFA] 90 mcg/actuation HFA aerosol inhaler 2 puffs INH Q4H PRN (Reason: shortness of breath or wheezing) Qty: 8.5 RF: 3 simvastatin 20 mg tablet 20 mg PO HS Qty: 90 RF: 3 Discharge Orders: Discharge Order (Routine); Ordered 07/11/20 Ordered By: Edwin Boateng Admission Data Admit Date/Time: 07/10/20 21:00 Attending Provider: Edwin Boateng Admit Provider: Ryan Robles Primary Care Provider: Jasmin Brooks Other Providers: Ryan Robles ; Perlita Weinstein Coding Level of Care Code D/C Day Management >30 mins Diagnoses Large bowel obstruction K56.609 Colonic mass K63.89 Enterocolic fistula K63.2 Non-specific colitis K52.9 Asthma J45.909 Hyperlipidemia E78.5 Hypertension I10 Time Spent (min) 35
--- NOTE | 2020-07-11 09:43 | Gastrointestinal Consultation ---
Date of Consultation July 11, 2020 Assessment & Plan (1) Large bowel obstruction: (2) Enterocolic fistula: (3) Non-specific colitis: DDx: Crohn's colitis vs chronic diverticulitis with stenosis vs mass vs other. 1. Agree with transfer to tertiary center with colorectal surgery services. 2. NPO for now. 3. Add Solu-Medrol 20 mg IV BID. 4. Continue IV antibiotics. 5. Continue supportive care. Thank you for allowing us to participate in the care of this patient. If you have any questions or concerns, please do not hesitate to contact us. History of Present Illness Reason for Consultation: Large bowel obstruction Requesting Physician: Dr. Robles Attending Physician: Edwin Boateng History of Present Illness Patient is a 49 year-old male admitted with abdominal pain and severe constipation. Patient states that his last bowel movement was last Friday. Since that time, he has been having abdominal pain and distention and has been passing drops of bright red blood. Emesis x 1 prior to arrival. No fevers or chills. Seen by general surgery last evening upon arrival and decision was for transfer after having undergone a CT a/p with IV enhancement that demonstrated a distended colon with rapid transition point in the proximal sigmoid colon with shouldering. Diverticulosis noted without acute diverticulitis. Suspected enterocolic fistula as well. He did have an outpatient colonoscopy in November of 2019 which demonstrated active, chronic colitis in the sigmoid colon. DDx was IBS vs diverticulitis-colitis. He was prescribed a 8 week course of Entocort and recommended to undergo an IBD-7 panel. He did not have labs performed and discontinued the steroids after a few weeks citing side effects of leg cramping. He did not notify the office of stopping the medication and became lost to follow up. Currently, he is NPO. Rates his pain as 2/10 constantly with sharper pains 6/10 with movement. Allergies Allergy/AdvReac Type Severity Reaction Status Date / Time No Known Allergies Allergy Verified 07/10/20 13:10 Home Medications Medication Instructions Recorded Confirmed Type albuterol sulfate 90 mcg/actuation 2 puffs INH Q4H PRN #8.5 gm 10/26/19 07/10/20 Rx aerosol inhaler lisinopril 10 mg tablet 10 mg PO DAILY #90 tab 01/19/20 07/10/20 Rx simvastatin 20 mg tablet 20 mg PO HS #90 tab 04/25/20 07/10/20 Rx acetaminophen [Ofirmev] 1,000 mg IV Q8H PRN #0 ml 07/11/20 Rx Patient History Medical History Asthma Hyperlipidemia Hypertension Impaired fasting glucose Non-specific colitis Proctosigmoiditis Surgical History H/O arthroscopic knee surgery History of colonoscopy History of tonsillectomy History of tooth extraction WISDOM TEETH Family History Aunt Family history of diabetes mellitus Other Depression Macular degeneration Obesity Ulcerative colitis Denies family history of Breast cancer Colorectal cancer Social History Smoking Status: Never smoker Second Hand Exposure: No; Hx Alcohol Use: Yes Alcohol type: hard liquor Hx Substance Use: No Preferred Language: Estonian Communication Ability: Effective Evaluation Specialist Required: No Beliefs That Will Affect Care: None Current Living Situation: Alone current occupational status: employed Other Information That Helps Us Care for You: No Feels Safe at Home: Yes Safety Concerns: Feels Safe At This Time Assistive Devices: None Assistive Devices Comment: reading glasses Review of Systems Review of Systems: All systems reviewed & are unremarkable except as noted in HPI & below Physical Exam Constitutional: WD/WN, vitals as above Eyes: EOM intact bilaterally Neck: normal appearance Respiratory: normal respiratory effort, lungs clear to auscultation Cardiovascular: Rate/Rhythm: regular rate and regular rhythm Heart Sounds: no gallop and no murmur Gastrointestinal (Abdomen): Inspection/Auscultation: + abdomen distended and + hypoactive bowel sounds Percussion/Palpation: + abdomen tender and abdomen soft Musculoskeletal: Extremities: extremities normal to inspection; no cyanosis no lower extremity edema Skin: no rashes, warm and dry Neurologic: moves all extremities Psychiatric: A+Ox3, euthymic affect Results & Data ([facility]) Vital Signs (Past 12 Hours) Vital Signs Temp Pulse Pulse Resp BP BP Pulse Ox 07/11/20 09:33 36.7 C 96 H 16 119/73 97 07/11/20 07:57 36.7 C 96 H 16 119/73 97 07/10/20 22:33 37.0 C 91 H 18 119/78 97 07/10/20 22:06 72 18 115/62 96 Laboratory Results Abnormal lab results 07/10/20 07/10/20 07/10/20 Range/Units 12:14 12:14 16:44 WBC 14.65 H (4.8-10.8) K/uL Hct (42-52) % MCHC 36.5 H (32-36) g/dL Plt Count 415 H (130-400) K/uL Neut # (Auto) 6.97 H (1.4-6.5) K/uL Lymph # (Auto) 5.70 H (1.2-3.4) K/uL [place] # (Auto) 1.16 H (0.11-0.59) K/uL Immature Gran # (Auto) 0.51 H (0.00-0.02) K/uL Sodium 132 L (136-145) mmol/L Carbon Dioxide 17 L (21-32) mmol/L Anion Gap 15.0 H (3-11) Glucose 105 H (70-99) mg/dl Calcium 8.4 L (8.5-10.1) mg/dl Total Protein (6.4-8.2) gm/dl Albumin 3.3 L (3.4-5.0) gm/dl Ur Specific [place] > 1.045 H (1.000-1.030) Urine Ketones 3+ H (Negative) 07/11/20 07/11/20 Range/Units 06:42 06:42 WBC (4.8-10.8) K/uL Hct 40.8 L (42-52) % MCHC (32-36) g/dL Plt Count (130-400) K/uL Neut # (Auto) (1.4-6.5) K/uL Lymph # (Auto) 3.47 H (1.2-3.4) K/uL [place] # (Auto) 0.97 H (0.11-0.59) K/uL Immature Gran # (Auto) 0.28 H (0.00-0.02) K/uL Sodium (136-145) mmol/L Carbon Dioxide 19 L (21-32) mmol/L Anion Gap (3-11) Glucose (70-99) mg/dl Calcium 7.4 L (8.5-10.1) mg/dl Total Protein 5.6 L (6.4-8.2) gm/dl Albumin 2.7 L (3.4-5.0) gm/dl Ur Specific [place] (1.000-1.030) Urine Ketones (Negative) PG Care Time/CCT Total # of Minutes Spent Total Time Spent with Patient: Total time spent is greater than 50% in coordination of care (as documented) at patient's floor/unit and/or counseling patient: Coding Level of Care Code 54436 Office/OBS Consult Lvl 4 Diagnoses Large bowel obstruction K56.609 Enterocolic fistula K63.2 Non-specific colitis K52.9
[2020-07-11] MEDS ORDERED: methylPREDNISolone 20 MG in SYRINGE 0 ML IV SCH (10:15)
--- NOTE | 2020-07-11 11:52 | Emergency Department Note ---
ED Visit Note I received this pt at the change of shift pending transfer to [facility] from Dr. Reveles. I was notified by nursing staff that the pt would not be receiving a bed assignment tonight. After discussion with the patient he stated he preferred admission and treatment, if at all possible, to [facility] but would take the transfer bed tomorrow if necessary. I did discuss the case with Dr. Weinstein of who feels the pt is safe to stay at [facility] as urgent surgical care is not necessary tonight. GI will plan consultation and potential inter vention tomorrow. Pt did receive Zosyn IV earlier in stay and a second dose was ordered. Additional IVF were ordered. Case was d/w Dr. Pryor of hospitalist medicine was consulted for admission. Pt is aware of plan and agrees. . : Leukocytosis Qualifiers: Leukocytosis type: unspecified Qualified Code(s): D72.829 - Elevated white blood cell count, unspecified
== END 2020-07-11 10:48 | disposition short-term general hospital (02) ==
LOC: ED 11:33 → SUATTDRO 21:00 → 3W 21:00